=== PATIENT | male | born 1940 | race Caucasian/White ===

== ENCOUNTER 2017-09-15 14:20 | Emergency (ER) | payer MEDICARE, BC ==
[~2017-09-15] VITALS: Ht 177.8 cm; Wt 97.1 kg
[~2017-09-15 14:20] MED LIST: ASA; DIAZIDE; FIBER CON; FOLIC ACID0.4 MG PO; IMDUR30 MG PO; LIPITOR10 MG; NADOLOL20 MG; PLAVIX75 MG; TRIAMTERINE
[2017-09-15 14:25] VITALS: BP 132/77
== END 2017-09-15 15:31 | disposition home or self-care (01) ==
LOC: ED 14:20
DX: S61.011A Laceration without foreign body of right thumb without damage to nail, initial encounter (principal); F10.10 Alcohol abuse, uncomplicated; Z79.899 Other long term (current) drug therapy; Z95.1 Presence of aortocoronary bypass graft; W26.0XXA Contact with knife, initial encounter; Y93.89 Activity, other specified; Y92.89 Other specified places as the place of occurrence of the external cause; Y99.8 Other external cause status

== ENCOUNTER → 2019-04-16 | Outpatient (CLI) | payer MEDICARE, BC ==
[2019-04-16 15:26] LABS: BASO # 0.1 10*3/uL (0.0-0.1); BASO % 0.8 % (0.0-1.0); EOS # 0.3 10*3/uL (0.0-0.4); EOS % 3.3 % (1.0-4.0); HEMATOCRIT 44.6 % (42.0-52.0); LYMPH # 2.2 10*3/uL (1.3-4.4); MEAN CELL VOLUME 97.8 fl (80.0-94.0); MEAN CORPUSCULAR HGB 32.9 pg (27.0-31.0); MEAN CORPUSCULAR HGB CONC 33.6 g/dl (33.0-37.0); MONO % 10.9 % (3.0-9.0); NEUT # 5.3 10*3/uL (2.3-7.9); NEUT % 59.7 % (47.0-73.0); PLATELET COUNT AUTOMATED 200 10*3/uL (130-400); RED BLOOD COUNT 4.56 10*6/uL (4.50-5.90); RED CELL DISTRI WIDTH 12.3 % (0-14.5); WHITE BLOOD COUNT 8.8 10*3/uL (4.8-10.8)
[2019-04-16 15:53] LABS: ALKALINE PHOSPHATASE 68 U/L (45-117); BUN 19 mg/dl (7-24); CHLORIDE 109 mmol/L (98-107); CHOLESTEROL 115 mg/dL (<200); CREATININE 1.03 mg/dL (0.70-1.30); HDL CHOLESTEROL 65 mg/dl (40-60); LDL CHOLESTEROL 36 mg/dL (9-159); POTASSIUM 4.2 mmol/L (3.5-5.1); SGOT/AST 23 IU/L (3-35); SGPT/ALT 35 U/L (12-78); SODIUM 141 mmol/L (136-145); TOTAL PROTEIN 7.8 gm/dL (6.4-8.2); TRIGLYCERIDES 71 mg/dl (<150); VLDL CHOLESTEROL 14 mg/dL (6-40)
== END | disposition home or self-care (01) ==
LOC: LAB 13:48
PROVIDERS: Family Medicine
DX: Z12.5 Encounter for screening for malignant neoplasm of prostate (principal); E78.5 Hyperlipidemia, unspecified; I10 Essential (primary) hypertension

== ENCOUNTER → 2019-05-12 | Outpatient (CLI) | payer MEDICARE, BC ==
--- NOTE | ~2019-05-12 | ST ---
[place], [place] EXERCISE STRESS TEST REPORT [id number] UNIT #: [id number] ROOM: DOCTOR: ANISA BAILEY MD BIRTHDATE: [birth year] DOS: 05/12/2019 HOLTER REPORT. TOTAL TIME: 47 hours and 59 minutes. Underlying rhythm is normal sinus with minimum rate of 51 and maximum rate of 110 beats per minute. The patient had a rare supraventricular ectopic beats, totalling 38 and a total of 932 ventricular ectopic beats were identified. There were couplets, mostly isolated unifocal PVCs and also occurring in the form of ventricular bigeminy and trigeminy. The patient rather had no symptoms during this monitoring. CONCLUSION: 1. Underlying rhythm is normal sinus rhythm. 2. 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 ANISA BAILEY MD CM:STRESS:EXERCISE STRESS TEST REPORT [id number] ANISA BAILEY MD
--- NOTE | ~2019-05-12 | HM ---
[place], [place] HOLTER MONITOR REPORT NAME: OLGA AVILA UNIT #: [id number] ROOM: DOCTOR: ANISA BAILEY MD BIRTHDATE: [birth year] DOS: 05/12/2019 HOLTER REPORT. TOTAL TIME: 47 hours and 59 minutes. Underlying rhythm is normal sinus with minimum rate of 51 and maximum rate of 110 beats per minute. The patient had a rare supraventricular ectopic beats, totalling 38 and a total of 932 ventricular ectopic beats were identified. There were couplets, mostly isolated unifocal PVCs and also occurring in the form of ventricular bigeminy and trigeminy. The patient rather had no symptoms during this monitoring. CONCLUSION: 1. Underlying rhythm is normal sinus rhythm. 2. 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 ANISA BAILEY MD CM:HOLTER:HOLTER MONITOR REPORT [id number] ANISA BAILEY MD
== END ==
LOC: CARD 08:40
DX: I49.3 Ventricular premature depolarization (principal)

== ENCOUNTER → 2021-03-17 | Outpatient (CLI) | payer MEDICARE, BC ==
[2021-03-17 09:07] LABS: BUN 23 mg/dl (7-24); CHLORIDE 110 mmol/L (98-107); CHOLESTEROL 112 mg/dL (<200); CREATININE 0.93 mg/dL (0.70-1.30); LDL CHOLESTEROL 42 mg/dL (9-159); POTASSIUM 3.6 mmol/L (3.5-5.1); SODIUM 140 mmol/L (136-145); TRIGLYCERIDES 70 mg/dl (<150)
== END | disposition home or self-care (01) ==
LOC: LAB 08:00
PROVIDERS: ATTEND Family Medicine
DX: I10 Essential (primary) hypertension (principal); I25.10 Atherosclerotic heart disease of native coronary artery without angina pectoris

== ENCOUNTER → 2022-03-21 | Outpatient (CLI) | payer MEDICARE, BC ==
[2022-03-21 09:29] LABS: BUN 24 mg/dl (7-24); CHLORIDE 110 mmol/L (98-107); POTASSIUM 4.2 mmol/L (3.5-5.1); SODIUM 141 mmol/L (136-145)
[2022-03-21 09:41] LABS: CHOLESTEROL 122 mg/dL (<200); CREATININE 0.98 mg/dL (0.70-1.30); LDL CHOLESTEROL 46 mg/dL (9-159); TRIGLYCERIDES 73 mg/dl (<150)
== END | disposition home or self-care (01) ==
LOC: LAB 08:22
PROVIDERS: ATTEND Family Medicine
DX: I11.9 Hypertensive heart disease without heart failure (principal); I25.10 Atherosclerotic heart disease of native coronary artery without angina pectoris; E78.2 Mixed hyperlipidemia

== ENCOUNTER → 2023-03-25 | Outpatient (CLI) | payer MEDICARE, BC ==
[2023-03-25 09:00] LABS: BUN 19 mg/dl (9-23); CHLORIDE 106 mmol/L (98-107); CHOLESTEROL 99 mg/dL (<200); LDL CHOLESTEROL 37 mg/dL (9-159); POTASSIUM 4.3 mmol/L (3.4-5.1); TRIGLYCERIDES 72 mg/dl (<150)
== END | disposition home or self-care (01) ==
LOC: LAB 07:31
PROVIDERS: ATTEND Family Medicine
DX: I25.10 Atherosclerotic heart disease of native coronary artery without angina pectoris (principal); I10 Essential (primary) hypertension; E78.2 Mixed hyperlipidemia

== ENCOUNTER → 2024-01-21 | Outpatient (CLI) | payer MEDICARE, BC ==
[2024-01-21 12:51] LABS: BUN 12 mg/dl (9-23); CHLORIDE 108 mmol/L (98-107); CHOLESTEROL 108 mg/dL (<200); LDL CHOLESTEROL 45 mg/dL (9-159); POTASSIUM 4.3 mmol/L (3.4-5.1); TRIGLYCERIDES 62 mg/dl (<150)
== END ==
LOC: LAB 11:54
PROVIDERS: ATTEND Family Medicine
DX: I10 Essential (primary) hypertension (principal); I25.10 Atherosclerotic heart disease of native coronary artery without angina pectoris

== ENCOUNTER 2025-01-11 12:00 | Emergency (ER) | payer MEDICARE, BC ==
[~2025-01-11] VITALS: Ht 177.8 cm; Wt 95.3 kg
[2025-01-11] MEDS ORDERED: METOPROLOL SUCC25 M2 PO (12:05)
[2025-01-11 12:06] VITALS: BP 125/75
[2025-01-11 12:39] LABS: BASO % 0.6 % (0.0-1.0); EOS # 0.3 10*3/uL (0.0-0.4); EOS % 5.3 % (1.0-4.0); HEMATOCRIT 42.6 % (42.0-52.0); MEAN CELL VOLUME 100.7 fl (80.0-94.0); MEAN CORPUSCULAR HGB 33.8 pg (27.0-31.0); MEAN CORPUSCULAR HGB CONC 33.6 g/dl (33.0-37.0); MEAN PLATELET VOLUME 9.6 fl (9.6-12.3); MONO # 0.9 10*3/uL (0.1-1.0); MONO % 13.6 % (3.0-9.0); NEUT % 61.9 % (47.0-73.0); PLATELET COUNT AUTOMATED 166 10*3/uL (130-400); RED BLOOD COUNT 4.23 10*6/uL (4.50-5.90); RED CELL DISTRI WIDTH 12.3 % (0-14.5); WHITE BLOOD COUNT 6.4 10*3/uL (4.8-10.8)
[2025-01-11 12:58] LABS: BUN 18 mg/dl (9-23); CHLORIDE 105 mmol/L (98-107); POTASSIUM 4.1 mmol/L (3.4-5.1)
[2025-01-11] MEDS ORDERED: AVPAK AZITHROM250 MG PO (14:26)
== END 2025-01-11 14:28 | disposition home or self-care (01) ==
LOC: ED 12:00
PROVIDERS: Internal Medicine
DX: J40 Bronchitis, not specified as acute or chronic (principal); Z20.822 Contact with and (suspected) exposure to COVID-19; Z79.899 Other long term (current) drug therapy

== ENCOUNTER 2025-03-28 15:04 | Emergency (ER) | payer MEDICARE, BC ==
[~2025-03-28] VITALS: Ht 177.8 cm; Wt 93.9 kg
[~2025-03-28 15:04] MED LIST changes: +AVPAK AZITHROM250 MG PO; +METOPROLOL SUCC25 M2 PO
[2025-03-28 15:33] VITALS: BP 106/71
[2025-03-28] MEDS ORDERED: methylPREDNISolone sod succ 125 MG VIAL IM ONE (17:25)
== END 2025-03-28 18:01 | disposition home or self-care (01) ==
LOC: ED 15:04
DX: L25.9 Unspecified contact dermatitis, unspecified cause (principal); Z79.899 Other long term (current) drug therapy; Z95.5 Presence of coronary angioplasty implant and graft

== ENCOUNTER 2025-06-20 09:37 | Emergency (ER) | payer MEDICARE, BC ==
[~2025-06-20] VITALS: Ht 177.8 cm; Wt 96.2 kg
[2025-06-20] MEDS ORDERED: SODIUM CHLORIDE 0.9% 500 ML IV ONE (09:45)
[2025-06-20 09:56] LABS: MEAN CELL VOLUME 103.6 fl (80.0-94.0); MEAN CORPUSCULAR HGB 34.2 pg (27.0-31.0); MEAN PLATELET VOLUME 9.5 fl (9.6-12.3); NUCLEATED RED BLOOD CELL 0.0 % (0.0-0.0); NUCLEATED RED BLOOD CELL 0.0 10*3/uL (0.0-0.0); PLATELET COUNT AUTOMATED 179 10*3/uL (130-400); RED CELL DISTRI WIDTH 12.8 % (0-14.5)
[2025-06-20 10:03] LABS: MANUAL DIFF REFLEX YES
[2025-06-20 10:23] LABS: BUN 17 mg/dl (9-23); CPK 58 U/L (34-171)
[2025-06-20 10:34] LABS: PLATELET SUFFICIENCY NORMAL (NORMAL)
[2025-06-20 12:13] VITALS: BP 144/82
== END 2025-06-20 12:30 | disposition home or self-care (01) ==
LOC: ED 09:37
PROVIDERS: Emergency Medicine
DX: R55 Syncope and collapse (principal); R11.0 Nausea; R60.0 Localized edema; Z79.899 Other long term (current) drug therapy; Z98.61 Coronary angioplasty status